=== PATIENT | male | born 1935 | race Hispanic/Latino ===

== ENCOUNTER 2017-09-12 10:53 | Day surgery (SDC) | payer MEDICARE, OTHER ==
[2017-09-12] MEDS ORDERED: NEOFRIN ONE (11:17)
[2017-09-12] MEDS ORDERED: MYDRIACYL ONE (11:17)
[2017-09-12] MEDS ORDERED: IOPIDINE ONE (11:17)
[2017-09-12] MEDS ORDERED: MYDRIACYL OS ONE (11:32)
[2017-09-12] MEDS ORDERED: NEOFRIN OS ONE (11:32)
[2017-09-12] MEDS ORDERED: IOPIDINE OS ONE (11:32)
[2017-09-12 14:24] VITALS: BP 138/72
== END 2017-09-12 12:50 | disposition home or self-care (01) ==
LOC: OR 10:53
PROVIDERS: ATTEND Specialist
DX: H26.492 Other secondary cataract, left eye (principal); I10 Essential (primary) hypertension; K21.9 Gastro-esophageal reflux disease without esophagitis; Z88.5 Allergy status to narcotic agent; Z88.8 Allergy status to other drugs, medicaments and biological substances; Z87.891 Personal history of nicotine dependence; Z85.828 Personal history of other malignant neoplasm of skin; Z90.49 Acquired absence of other specified parts of digestive tract; Z98.890 Other specified postprocedural states